=== PATIENT | male | born 1950 | race Caucasian/White ===

== ENCOUNTER 2018-11-06 07:42 | Emergency (ER) | payer BC, MEDICARE ==
--- NOTE | 2018-11-06 09:22 | CT ---
Date of Service: 11/06/18 Clinical Data: abdominal pain UNENHANCED ABDOMEN AND PELVIC CT: Multislice axial acquisition through the abdomen and pelvis without IV or oral contrast was performed. No priors. The lung bases are clear. The heart size is normal. There are mild coronary artery calcifications. There is diffuse fatty infiltration of the liver. No focal hepatic lesions. There are subtle hyperdense foci in the dependent gallbladder suspicious for gallstones. Gallbladder ultrasound is recommended. No pericholecystic fluid. The spleen appears normal. The pancreas appears normal. The right and left adrenals appear normal. There are bilateral nonobstructing renal calculi. There is 10 mm right ureteral calculus located in the distal right ureter just proximal to the ureterovesical junction. There is marked hydronephrosis and hydroureter proximal to it consistent with obstruction. The right kidney is also mildly swollen compared to the left and there is perinephric fat stranding. There is also fat stranding and some fluid adjacent to the right renal pelvis and right ureter. This is most likely related to obstruction. Pyelonephritis should be considered. The bladder is partially fluid filled. It appears normal. The prostate is enlarged There are calcifications within the prostate consistent with chronic prostatitis. The appendix is not dilated. No evidence of appendicitis. There is a fusiform aneurysm of the distal abdominal aorta measuring 3.7 cm in diameter. No evidence of leakage. No free air. No free fluid. No dilated loops of bowel. No adenopathy. There is an umbilical hernia containing fat. There is degenerative disk disease throughout the thoracic and lumbar spine. No other significant findings. IMPRESSION: 10 mm distal ureteral calculus on right with obstruction. Multiple other findings as discussed above. [id number] [facility]
--- NOTE | 2018-11-06 19:34 | EDM.PDOC ---
ED HPI GENERAL MEDICAL PROBLEM - General Chief Complaint: General Stated Complaint: NOT FEEL WELL Time Seen by Provider: 11/06/18 08:00 Source of Information: Reports: Patient, Family History Limitations: Reports: No Limitations - History of Present Illness INITIAL COMMENTS - FREE TEXT/NARRATIVE: This is a 68yo M here for nausea and no appetite. He has some right abdominal pain. He states he has felt this way for the past few days and it has worsened. Onset: Gradual Duration: Day(s): Location: Reports: Abdomen, Generalized Right Flank Pain Score (Numeric/FACES): 7 - Related Data Allergies Allergy/AdvReac Type Severity Reaction Status Date / Time No Known Allergies Allergy Verified 11/06/18 08:28 Home Meds: Home Meds Benazepril [Lotensin] 20 mg PO DAILY 11/06/18 [History] Past Medical History Cardiovascular History: Reports: Hypertension Gastrointestinal History: Reports: Colon Polyp Other Endocrine/Metabolic History: States he is possibly pre-diabetic Social & Family History - Family History Family Medical History: Noncontributory - Tobacco Use Smoking Status *Q: Current Every Day Smoker Years of Tobacco use: 50 Packs/Tins Daily: 1 - Caffeine Use Caffeine Use: Reports: Coffee, Soda - Alcohol Use Days Per Week of Alcohol Use: 5 Number of Drinks Per Day: 2 Total Drinks Per Week: 10 - Recreational Drug Use Recreational Drug Use: No ED ROS GENERAL - Review of Systems Review Of Systems: ROS reveals no pertinent complaints other than HPI. ED EXAM, GENERAL - Physical Exam Exam: See Below Exam Limited By: No Limitations General Appearance: Alert, WD/WN, Mild Distress Eye Exam: Bilateral Eye: EOMI, PERRL Ears: Normal External Exam Nose: Normal Inspection Throat/Mouth: Normal Inspection, Normal Lips, Normal Teeth Head: Atraumatic, Normocephalic Neck: Normal Inspection Respiratory/Chest: No Respiratory Distress, Lungs Clear, Normal Breath Sounds Cardiovascular: Normal Peripheral Pulses, Regular Rate, Rhythm GI/Abdominal: Normal Bowel Sounds, Soft, Non-Tender Back Exam: Normal Inspection Extremities: Normal Inspection Course - Vital Signs Last Recorded V/S: Last Vital Signs Temp 36.8 C 11/06/18 07:52 Pulse 85 11/06/18 07:52 Resp 18 11/06/18 07:52 BP 139/85 11/06/18 07:52 Pulse Ox 97 11/06/18 07:52 - Orders/Labs/Meds Labs: Laboratory Tests 11/06/18 11/06/18 Range/Units 08:10 08:15 WBC 12.0 H (4.0-11.0) K/uL RBC 5.31 (4.50-6.50) M/uL Hgb 16.8 (13.0-18.0) g/dL Hct 48.2 (40.0-54.0) % MCV 91 (76-96) fL MCH 31.6 (27.0-32.0) pg MCHC 34.9 (31.0-35.0) g/dL RDW 13.8 (11.0-16.0) % Plt Count 212 (150-400) K/uL MPV 10.3 H (6.0-10.0) fL Neut % (Auto) 79.9 H (45.0-70.0) % Lymph % (Auto) 10.0 L (20.0-40.0) % [place] % (Auto) 9.5 (3.0-10.0) % Eos % (Auto) 0.3 L (1.0-5.0) % Baso % (Auto) 0.3 (0.0-0.5) % Neut # (Auto) 9.60 H (2.00-7.50) K/uL Lymph # (Auto) 1.20 L (1.50-4.00) K/uL [place] # (Auto) 1.14 H (0.20-0.80) K/uL Eos # (Auto) 0.03 L (0.04-0.40) K/uL Baso # (Auto) 0.03 (0.02-0.10) K/uL Sodium 138 (136-145) mmol/L Potassium 4.2 (3.5-5.1) mmol/L Chloride 101 (98-107) mmol/L Carbon Dioxide 29.8 (21.0-32.0) mmol/L Anion Gap 11.4 (5.0-15.0) mmol/L BUN 18 (8-26) mg/dL Creatinine 1.25 (0.70-1.30) mg/dL Est Cr Clr Drug Dosing 55.48 mL/min Estimated GFR (MDRD) 58 L (>60) MLS/MIN BUN/Creatinine Ratio 14.4 (6-25) Glucose 175 H (74-100) mg/dL Calcium 9.3 (8.5-10.1) mg/dL Total Bilirubin 0.8 (0.0-1.0) mg/dL AST 25 (15-37) U/L ALT 59 (12-78) U/L Alkaline Phosphatase 92 (46-116) U/L Troponin I < 0.017 (0.000-0.060) ng/mL Total Protein 8.1 (6.4-8.2) g/dL Albumin 3.7 (3.4-5.0) g/dL Globulin 4.4 H (2.2-4.2) g/dL Albumin/Globulin Ratio 0.8 (0.8-2.0) Departure - Departure Time of Disposition: 10:30 Disposition: DC/Tfer to [facility] 02 Condition: Fair Clinical Impression: Renal calculus, right, Hydroureter on right Hydronephrosis Qualifiers: Hydronephrosis type: with renal calculous obstruction Qualified Code(s): N13.2 - Hydronephrosis with renal and ureteral calculous obstruction - Discharge Information Instructions: Kidney Stones, [id number] Referrals: PCP,None [Primary Care Provider] - Forms: ED Department Discharge Additional Instructions: Patient is to go to the ER at [facility] in [place]. You will spend the night and they will place the stent today and possibly extract the stone tomorrow. - Problem List & Annotations (1) Hydronephrosis SNOMED Code(s): 32714638 Code(s): N13.30 - UNSPECIFIED HYDRONEPHROSIS Status: Acute Qualifiers: Hydronephrosis type: with renal calculous obstruction Qualified Code(s): N13.2 - Hydronephrosis with renal and ureteral calculous obstruction (2) Hydroureter on right SNOMED Code(s): 19229870 Code(s): N13.4 - HYDROURETER Status: Acute (3) Renal calculus, right SNOMED Code(s): 67949911 Code(s): N20.0 - CALCULUS OF KIDNEY Status: Acute - Problem List Review Problem List Initiated/Reviewed/Updated: Yes - Assessment/Plan Plan: Patient discharged and to proceed to [facility] ER for direct admission and Urology management.
== END 2018-11-06 09:40 ==
LOC: LB.ED 07:42
DX: N13.2 Hydronephrosis with renal and ureteral calculous obstruction (principal); N13.4 Hydroureter; F17.210 Nicotine dependence, cigarettes, uncomplicated; Z79.899 Other long term (current) drug therapy
CPT/HCPCS: 36415; 74176; 80053; 84484; 85025; 99284; 99285-25